=== PATIENT | male | born 1980 | race Caucasian/White ===

== ENCOUNTER → 2016-09-06 | Outpatient (CLI) | payer BC ==
--- NOTE | 2016-09-06 12:24 | PN ---
DATE OF SERVICE: 09/06/2016 A 35-year-old gentleman who came in [facility]up [facility] for treatment of moderate obstructive sleep apnea-hypopnea syndrome. We discussed results of diagnostic sleep study and titration with the patient. Home sleep apnea test showed obstructive sleep apnea with apnea-hypopnea index 25.1 with oxygen desaturation to 81%. Patient presently on treatment with a CPAP pressure 8 cm of water. Patient trying to use equipment every night for the whole night, but he had several episodes of upper respiratory infection and at that time he was not able to use equipment. I checked his CPAP unit. CPAP pressure of 8 cm of water. Patient used equipment 23 out of 30 nights but only 15 out of 30 nights for more than 4 hours. Leak is acceptable 7 L/min. Apnea-hypopnea index reading 3.5. Usage for 3 months is 54 out of 79 nights. REM is in ( ) regimen. Sometimes patient may feel some sleepiness in the afternoon at the time of watching TV or lying down to rest. MEDICATIONS: Metformin, Januvia, losartan, metoprolol hydrochlorothiazide. During physical exam, patient in no distress. BP 139/97, HR 88, RR 16. Weight 215, temp 98.1. Oxygen saturation at room air 94%. HEENT: PERRLA, EOMI. LUNGS: Clear. HEART: S1, S2, regular. ABDOMEN: Soft, nontender. EXTREMITIES: No edema. IMPRESSION: 1. Moderate by results of home sleep apnea test; obstructive sleep apnea-hypopnea syndrome. Apnea-hypopnea index 25.1 with oxygen desaturation to 81%, practically on control with CPAP at 8 cm of water. Patient benefiting from CPAP treatment. 2. Compliance of usage is slightly below recommended, but patient had several episodes of upper respiratory infection and was not able to use machine at that time. 3. Sometimes he feels a little sleepiness on afternoon time. 4. Hypertension. 5. Diabetes. 6. Status post surgical treatment of cleft palate in manufacturing technician. 7. Status post left ankle surgery for benign cyst. 8. History of ear infection with tube insertion in the past. PLAN: 1. I changed ramp time from automatic regimen to 20 minutes. 2. Patient will use CPAP treatment every night for the whole night with the same regimen of pressure. 3. We discussed with the patient how to adjust ramp time and humidifier regimen by himself. 4. Watching weight. 5. Sleep hygiene with regular time in bed for at least 8 hours. 6. 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 Thank you very much for allowing me to participate in the management of your patient. Sincerely, Kanu Magana MD, PhD, FAASM. Diplomat of [place] [employer], Sleep Medicine Board by [place] [employer] [place] [employer] Industrial Controls Technician [facility] [place]
== END | disposition home or self-care (01) ==

== ENCOUNTER → 2016-10-04 | Outpatient (CLI) | payer BC | END | disposition home or self-care (01) | LOC: SLEEP 10:05 | PROVIDERS: ATTEND Internal Medicine ==

== ENCOUNTER 2017-05-22 17:38 | Emergency (ER) | payer SELFPAY ==
[2017-05-22] MEDS ORDERED: FAMOTIDINE 20 MG/2 ML VIAL IV STA (17:48)
--- NOTE | 2017-05-22 18:00 | ED ---
Skin/Abscess/FB HPI - General Chief complaint: Skin/Abscess/Foreign Body Stated complaint: ALLERGIC REACTION Time Seen by Provider: 05/22/17 17:42 Source: patient, RN notes reviewed Mode of arrival: EMS Limitations: no limitations - History of Present Illness Initial comments: 36-year-old male presents emergency from the EMS chief complaint ALLERGIC reaction. Patient states he was stung by a bee in his left forearm region. Patient states a few minutes after he started feeling itchy all over and having some shortness of breath. Patient states he called 911 at that time and was given Solu-Medrol, Benadryl and epi by EMS. Patient states this point symptoms are improving thoroughly feels shaky. Patient denies any difficulty swallowing difficulty breathing. He states he has had ALLERGIC reactions in the past to bee stings. - Related Data Previous Rx's Medication Instructions Recorded diphenhydrAMINE [Benadryl] 50 mg PO QID PRN #20 capsule 05/22/17 predniSONE 50 mg PO DAILY #3 tab 05/22/17 Allergies Allergy/AdvReac Type Severity Reaction Status Date / Time bee venom protein (honey bee) Allergy Rash/Hives Verified 05/22/17 17:47 Review of Systems ROS Statement: Those systems with pertinent positive or pertinent negative responses have been documented in the HPI. ROS Other: All systems not noted in ROS Statement are negative. Past Medical History Past Medical History: Diabetes Mellitus, Hypertension History of Any Multi-Drug Resistant Organisms: None Reported Past Surgical History: Orthopedic Surgery Past Psychological History: No Psychological Hx Reported Smoking Status: Never smoker Past Alcohol Use History: None Reported Past Drug Use History: None Reported General Exam Limitations: no limitations General appearance: alert, in no apparent distress Head exam: Present: atraumatic, normocephalic, normal inspection Eye exam: Present: normal appearance, PERRL, EOMI. Absent: scleral icterus, conjunctival injection, periorbital swelling ENT exam: Present: normal exam, normal oropharynx, mucous membranes moist, TM's normal bilaterally, normal external ear exam Neck exam: Present: normal inspection, full ROM. Absent: tenderness, meningismus, lymphadenopathy Respiratory exam: Present: normal lung sounds bilaterally. Absent: respiratory distress, wheezes, rales, rhonchi, stridor Cardiovascular Exam: Present: regular rate, normal rhythm, normal heart sounds. Absent: systolic murmur, diastolic murmur, rubs, gallop, clicks Neurological exam: Present: alert, oriented X3, CN II-XII intact Skin exam: Present: warm, dry, intact, normal color. Absent: rash Course Vital Signs 05/22/17 05/22/17 05/22/17 17:41 18:05 18:27 Temperature 97.8 F Pulse Rate 114 H 108 H 106 H Respiratory 20 24 Rate Blood Pressure 155/74 141/68 O2 Sat by Pulse 96 92 L Oximetry 05/22/17 05/22/17 18:32 19:09 Temperature 97.9 F Pulse Rate 108 H 113 H Respiratory 18 Rate Blood Pressure 123/62 O2 Sat by Pulse 96 Oximetry Medical Decision Making - Medical Decision Making 36 year old male presented for ALLERGIC reaction. Patient was given epi, Solu- Medrol albuterol by EMS. There was a failed attempt for IM epi.Patient was given IV epi, EKG does not show any arrhythmias. Patient is symptom free. Patient will be discharged with prednisone and Benadryl. Disposition Clinical Impression: Allergic reaction, Bee sting Disposition: HOME SELF-CARE Condition: Stable Instructions: General Allergic Reaction (ED) Additional Instructions: Please return to the Emergency Department if symptoms worsen or any other concerns. Prescriptions: diphenhydrAMINE [Benadryl] 50 mg PO QID PRN #20 capsule PRN Reason: allergic symptoms predniSONE 50 mg PO DAILY #3 tab Referrals: Pavan Kyle MD [Primary Care Provider] - 1-2 days Time of Disposition: 19:29
[2017-05-22] MEDS ORDERED: IPRATROPIUM-ALBUTEROL 3 ML NEB INHALATION STA (18:20)
[2017-05-22 19:11] VITALS: RESP 18
[2017-05-22 19:44] VITALS: BP 120/58; PULSE 110; TEMP 98
== END 2017-05-22 19:50 | disposition home or self-care (01) ==
LOC: EC 17:38
DX: T63.441A Toxic effect of venom of bees, accidental (unintentional), initial encounter (principal); Z91.030 Bee allergy status
CPT/HCPCS: 93005; 94640; 96374; 99284

== ENCOUNTER 2021-10-12 12:20 | Emergency (ER) | payer OTHER ==
[2021-10-12 12:26] VITALS: BP 153/89; TEMP 97
--- NOTE | 2021-10-12 13:11 | CT ---
EXAMINATION TYPE: CT brain wo con DATE OF EXAM: 10/12/2021 COMPARISON: None available HISTORY: Fall on ice this am, hitting back of head CT DLP: 1099.4 mGycm Automated exposure control for dose reduction was used. TECHNIQUE: Multiplanar CT scan of the brain is performed without IV contrast administration. FINDINGS: Unremarkable morphology of the cerebral hemispheres, cerebellum and brainstem. No acute intracranial hemorrhage. No gross acute cortical infarct. No midline shift, herniation or ventriculectomy. Unremarkable williamson-white matter differentiation, basal cisterns, sella and CP angles. No gross space-o ccupying lesion, vasogenic edema or mass effect. Unremarkable orbits. Right high parietal posterior scalp swelling/hematoma. Left maxillary sinus poly p/retention cyst, not completely included in the scan. Opacified right mastoid air cells, suggestive of chronic mastoiditis. Unremarkable calvarial bones. IMPRESSION: No acute intracranial posttraumatic sequela or acute calvarial bone fracture. Incidental findings as described above.
--- NOTE | 2021-10-12 13:15 | ED ---
Fall HPI - General Chief Complaint: Fall Stated Complaint: [facility]-Fall Time Seen by Provider: 10/12/21 12:27 Source: patient, RN notes reviewed Mode of arrival: ambulatory Limitations: no limitations - History of Present Illness Initial Comments: This a 40-year-old male presents emergency Department with chief complaint muscle fall. Patient states she slipped on some ice outside of work. Patient states that he fell back striking his head he does have some mild discomfort. Denies any significant neck or back pain no focal weakness denies any extremity paresthesias no blurred vision denies any loss conscious. Patient states that he just has some pain, swelling of the scalp. - Related Data Previous Rx's Medication Instructions Recorded EPINEPHrine [Epipen 2-Ab] 0.3 mg IM ONCE PRN #1 pack 05/22/17 diphenhydrAMINE [Benadryl] 50 mg PO QID PRN #20 capsule 05/22/17 predniSONE 50 mg PO DAILY #3 tab 05/22/17 Allergies Allergy/AdvReac Type Severity Reaction Status Date / Time bee venom protein (honey bee) Allergy Rash/Hives Verified 10/12/21 12:26 lisinopril Allergy Cough Verified 10/12/21 12:26 metformin Allergy Nausea & Verified 10/12/21 12:26 Vomiting Review of Systems ROS Statement: Those systems with pertinent positive or pertinent negative responses have been documented in the HPI. ROS Other: All systems not noted in ROS Statement are negative. Past Medical History Past Medical History: Diabetes Mellitus, Hypertension History of Any Multi-Drug Resistant Organisms: None Reported Past Surgical History: Orthopedic Surgery Past Psychological History: No Psychological Hx Reported Past Alcohol Use History: None Reported Past Drug Use History: None Reported General Exam Limitations: no limitations General appearance: alert, in no apparent distress Head exam: Present: atraumatic, normocephalic. Absent: normal inspection (Posterior scalp hematoma) Eye exam: Present: normal appearance, PERRL, EOMI. Absent: scleral icterus, conjunctival injection, periorbital swelling ENT exam: Present: normal exam, normal oropharynx, mucous membranes moist, TM's normal bilaterally Neck exam: Present: normal inspection, full ROM. Absent: tenderness, meningismus, lymphadenopathy Respiratory exam: Present: normal lung sounds bilaterally. Absent: respiratory distress, wheezes, rales, rhonchi, stridor Cardiovascular Exam: Present: regular rate, normal rhythm, normal heart sounds. Absent: systolic murmur, diastolic murmur, rubs, gallop, clicks Neurological exam: Present: alert, oriented X3, CN II-XII intact, reflexes normal. Absent: motor sensory deficit Skin exam: Present: warm, dry, intact, normal color. Absent: rash Course Vital Signs 10/12/21 12:21 Temperature 97.0 F L Pulse Rate 97 Respiratory 18 Rate Blood Pressure 153/89 O2 Sat by Pulse 98 Oximetry Medical Decision Making - Medical Decision Making CT is unremarkable for acute findings. Patient is some chronic changes. Patient we discharged in stable condition return parameters were discussed. Disposition Clinical Impression: Fall, Scalp hematoma, Head contusion Disposition: HOME SELF-CARE Condition: Stable Instructions (If sedation given, give patient instructions): Head Injury (ED) Additional Instructions: Please return to the Emergency Department if symptoms worsen or any other concerns. Is patient prescribed a controlled substance at d/c from ED?: No Referrals: Juan Alberto Robertson DO [Primary Care Provider] - 1-2 days Time of Disposition: 13:15
[2021-10-12 13:24] VITALS: PULSE 78; RESP 16
== END 2021-10-12 13:24 | disposition home or self-care (01) ==
LOC: EC 12:20
DX: S00.03XA Contusion of scalp, initial encounter (principal); E11.9 Type 2 diabetes mellitus without complications; I10 Essential (primary) hypertension; Z79.84 Long term (current) use of oral hypoglycemic drugs; W00.0XXA Fall on same level due to ice and snow, initial encounter
CPT/HCPCS: 70450; 99284

== ENCOUNTER → 2023-07-30 | Outpatient (CLI) | payer BC | END | disposition home or self-care (01) | LOC: LABWHC1 14:31 | PROVIDERS: ATTEND Family Medicine | DX: E11.65 Type 2 diabetes mellitus with hyperglycemia (principal); I10 Essential (primary) hypertension; R70.0 Elevated erythrocyte sedimentation rate | CPT/HCPCS: 36415; 83036 ==

== ENCOUNTER 2023-12-16 07:21 | Emergency (ER) | payer BC ==
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
[2023-12-16 07:45] VITALS: RESP 20; TEMP 98.8
[2023-12-16] MEDS: methylPREDNISolone SOD SUCCI 125 MG/2 ML VIAL IV STA (07:53)
[2023-12-16 07:57] LABS: Basophils # (A) 0.1 k/uL (0-0.2); Basophils % (A) 1 %; Eosinophils # (A) 0.2 k/uL (0-0.7); Eosinophils % (A) 3 %; HCT 36.6 % (39.0-53.0); HGB 12.6 gm/dL (13.0-17.5); Lymphocytes # (A) 1.8 k/uL (1.0-4.8); Lymphocytes % (A) 24 %; MCH 28.9 pg (25.0-35.0); MCHC 34.4 g/dL (31.0-37.0); Mean Platelet Volume 8.4; Monocytes # (A) 0.5 k/uL (0-1.0); Monocytes % (A) 7 %; Neutrophils # (A) 4.7 k/uL (1.3-7.7); Neutrophils % (A) 63 %; Platelet Count 168 k/uL (150-450); RBC 4.36 m/uL (4.30-5.90); RDW 13.3 % (11.5-15.5); WBC 7.5 k/uL (3.8-10.6)
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
[2023-12-16 08:12] LABS: ALT 29 U/L (4-49); AST 33 U/L (17-59); African American GFR (CKD) >90 (>60 ml/min/1.73 sqM); Albumin 3.4 g/dL (3.5-5.0); Alkaline Phosphatase 72 U/L (38-126); Anion Gap 9 mmol/L; Blood Urea Nitrogen 11 mg/dL (9-20); Calcium 8.7 mg/dL (8.4-10.2); Carbon Dioxide 24 mmol/L (22-30); Chloride 103 mmol/L (98-107); Glucose 193 mg/dL (74-99); Non-African American GFR(CKD) >90 (>60 ml/min/1.73 sqM); Potassium 3.9 mmol/L (3.5-5.1); Sodium 136 mmol/L (137-145); Total Bilirubin 1.4 mg/dL (0.2-1.3); Total Protein 6.3 g/dL (6.3-8.2)
[2023-12-16] MEDS: IPRATROPIUM-ALBUTEROL 3 ML NEB INHALATION STA (09:08)
[2023-12-16] MEDS: cefTRIAXone IN SWFI 1,000 MG/10 ML SYRINGE IVP STA (09:37)
[2023-12-16 10:02] VITALS: PULSE 98
[2023-12-16 10:03] VITALS: BP 165/89
== END 2023-12-16 09:53 | disposition home or self-care (01) ==
LOC: EC 07:21
DX: J18.9 Pneumonia, unspecified organism (principal); Z91.030 Bee allergy status; Z88.8 Allergy status to other drugs, medicaments and biological substances
CPT/HCPCS: 36415; 94640; 85379; 80053; 85025; 87636; 71046; 99285; 96374; 96375; J0696; J2919

== ENCOUNTER 2023-12-18 14:19 | Observation (INO) | payer BC ==
--- NOTE | 2023-12-18 14:56 | XR ---
EXAMINATION TYPE: XR chest 2V DATE OF EXAM: 12/18/2023 COMPARISON: 12/16/2023 INDICATION: Short of breath TECHNIQUE: Single frontal view of the chest is obtained. FINDINGS: The heart size is normal. The pulmonary vasculature is normal. The lungs are clear. IMPRESSION: 1. No acute pulmonary process.
--- NOTE | 2023-12-18 15:22 | ED ---
SOB HPI - General Source: patient, RN notes reviewed Mode of arrival: ambulatory Limitations: no limitations <Ashley Smith - Last Filed: 12/18/23 15:20> <Neal Lynch - Last Filed: 12/18/23 17:25> - General Chief Complaint: Shortness of Breath Stated Complaint: SOB, low oxygen Time Seen by Provider: 12/18/23 14:30 - History of Present Illness Initial Comments: Evelina joshi is a 43-year-old male with a history of asthma presents emergency department chief complaint of a cough and shortness of breath over the last 5 days. He states that he was advised by his primary care provider to report to the emergency department due to having a low oxygen saturation office reading 86 to 87%. (Ashley Smith) 43-year-old male presents for evaluation of cough and dyspnea. Patient has history of hypertension and diabetes. Patient has had symptoms for the past 5 days after being exposed to smoke. Patient denies fever. He was treated with antibiotics and albuterol but continues to have nonproductive cough and mild dyspnea. No vomiting. (Neal Lynch) - Related Data Previous Rx's Medication Instructions Recorded EPINEPHrine [Epipen 2-Ab] 0.3 mg IM ONCE PRN #1 pack 05/22/17 diphenhydrAMINE [Benadryl] 50 mg PO QID PRN #20 capsule 05/22/17 predniSONE 50 mg PO DAILY #3 tab 05/22/17 Albuterol Inhaler [Ventolin Hfa 1 - 2 puff INHALATION Q6H PRN #1 12/16/23 Inhaler] each Azithromycin [Zithromax Z Pack] 0 tab PO DIRECTED #6 tab 12/16/23 Allergies Allergy/AdvReac Type Severity Reaction Status Date / Time bee venom protein (honey bee) Allergy Rash/Hives Verified 12/18/23 14:29 lisinopril Allergy Cough Verified 12/18/23 14:29 metformin Allergy Nausea & Verified 12/18/23 14:29 Vomiting metoprolol [From Lopressor] Allergy Rash/Hives Verified 12/18/23 14:29 Review of Systems ROS Other: All systems not noted in ROS Statement are negative. <Ashley Smith - Last Filed: 12/18/23 15:20> ROS Other: All systems not noted in ROS Statement are negative. <Neal Lynch - Last Filed: 12/18/23 17:25> ROS Statement: Those systems with pertinent positive or pertinent negative responses have been documented in the HPI. Past Medical History Past Medical History: Diabetes Mellitus, Hypertension History of Any Multi-Drug Resistant Organisms: None Reported Past Surgical History: Orthopedic Surgery Past Psychological History: No Psychological Hx Reported Smoking Status: Never smoker Past Alcohol Use History: None Reported Past Drug Use History: None Reported <Ashley Smith - Last Filed: 12/18/23 15:20> General Exam Limitations: no limitations <Ashley Smith - Last Filed: 12/18/23 15:20> General appearance: alert, in no apparent distress Head exam: Present: atraumatic, normocephalic Eye exam: Present: normal appearance, PERRL ENT exam: Present: normal exam Neck exam: Present: normal inspection. Absent: tenderness, meningismus Respiratory exam: Present: wheezes (Bronchospastic cough). Absent: respiratory distress Cardiovascular Exam: Present: normal rhythm, tachycardia GI/Abdominal exam: Present: soft. Absent: distended, tenderness Extremities exam: Present: normal inspection, normal capillary refill. Absent: pedal edema, calf tenderness Neurological exam: Present: alert, oriented X3, CN II-XII intact. Absent: motor sensory deficit Psychiatric exam: Present: normal affect, normal mood Skin exam: Present: warm, dry, intact, normal color <Neal Lynch - Last Filed: 12/18/23 17:25> - General Exam Comments Initial Comments: Visual Physical Exam Vital signs reviewed General: Well-appearing, nontoxic, no acute distress. Head: Normocephalic, atraumatic Eyes: PERRLA, EOMI ENT: Airway patent Chest: Nonlabored breathing Skin: No visual rash, normal skin tone Neuro: Alert and oriented 3 Musculoskeletal: No gross abnormalities (Ashley Smith) Course Vital Signs 12/18/23 12/18/23 12/18/23 14:26 15:46 16:10 Temperature 98.5 F Pulse Rate 115 H 95 105 H Respiratory 18 Rate Blood Pressure 126/100 O2 Sat by Pulse 92 L Oximetry Medical Decision Making <Ashley Smith - Last Filed: 12/18/23 15:20> - Lab Data Result diagrams: 12/18/23 15:48 12/18/23 15:48 <Neal Lynch N - Last Filed: 12/18/23 17:25> - Medical Decision Making I completed the quick note portion of this chart signed Ashley Smith PA-C (Ashley Smith) Was pt. sent in by a medical professional or institution ([facility], [employer] [facility], urgent care, hospital, or senior living...) When possible be specific @ -No Did you speak to anyone other than the patient for history (EMS, parent, family, police, friend...)? What history was obtained from this source @ -No Did you review nursing and triage notes (agree or disagree)? Why? @ -I reviewed and agree with nursing and triage notes Were old charts reviewed (outside hosp., previous admission, EMS record, old EKG, old radiological studies, urgent care reports/EKG's, senior living records)? Report findings @ -No old charts were reviewed Differential Diagnosis (chest pain, altered mental status, abdominal pain women, abdominal pain men, vaginal bleeding, weakness, fever, dyspnea, syncope, headache, dizziness, GI bleed, back pain, seizure, CVA, palpatations, mental he alth, musculoskeletal)? @Differential Dyspnea: Coronary syndrome, arrhythmia, tamponade, asthma, COPD, pulmonary embolism, pneumonia, pneumothorax, pulmonary effusion, anaphylaxis, diabetic ketoacidosis, flailed chest, pulmonary contusion, diaphragmatic rupture, anemia, neuromuscular, this is not meant to be an all-inclusive list. EKG interpreted by me (3pts min.). @Sinus tachycardia rate of 116, WA interval 123, QRS duration 95, QTc [address] segment elevation X-rays interpreted by me (1pt min.). @ -Chest x-ray negative for acute cardiopulmonary disease. CT interpreted by me (1pt min.). @ -None done U/S interpreted by me (1pt. min.). @ -None done What testing was considered but not performed or refused? (CT, X-rays, U/S, labs)? Why? @ -None What meds were considered but not given or refused? Why? @ -None Did you discuss the management of the patient with other professionals (pro fessionals i.e. [facility], [employer], lab, RT, psych nurse, director social service, main line assembler, teacher, fire officer, case monitor)? Give summary @EM Was smoking cessation discussed for >3mins.? @ -No Was critical care preformed (if so, how long)? @ -No Were there social determinants of health that impacted care today? How? (Homelessness, low income, unemployed, alcoholism, drug addiction, transportation, low edu. Level, literacy, decrease access to med. care, fdc, rehab)? @ -No Was there de-escalation of care discussed even if they declined (Discuss DNR or withdrawal of care, Hospice)? DNR status @ -No What co-morbidities impacted this encounter? (DM, HTN, Smoking, COPD, CAD, Cancer, CVA, ARF, Chemo, Hep., AIDS, mental health diagnosis, sleep apnea, morbid obesity)? @ -Hypertension, diabetes Was patient admitted / discharged? Hospital course, mention meds given and route, prescriptions, significant lab abnormalities, going to OR and other pertinent info. @ -[43-year-old male with persistent cough, dyspnea, hypoxia. Patient sent in by primary care for hypoxia in the 80s. Patient has been sick for 5 days with cough this occurred after exposure to smoke. He does have wheezing and decreased air entry bilaterally. Chest x-ray is clear. He has normal CBC, normal CMP, negative D-dimer, negative troponin and BNP. He will be placed in observation for treatment of reactive airway disease with hypoxia. Undiagnosed new problem with uncertain prognosis? @ -No Drug Therapy requiring intensive monitoring for toxicity (Heparin, Nitro, Insulin, Cardizem)? @ -No Were any procedures done? @ -No Diagnosis/symptom? @ -Asthma exacerbation, reactive airway, hypoxia Acute, or Chronic, or Acute on Chronic? @ -Acute Uncomplicated (without systemic symptoms) or Complicated (systemic symptoms)? @ -Default Side effects of treatment? @ -No Exacerbation, Progression, or Severe Exacerbation? @ -No Poses a threat to life or bodily function? How? (Chest pain, [place], [place], pneumonia, PE, COPD, DKA, ARF, appy, cholecystitis, CVA, Diverticulitis, Homicidal, Suicidal, threat to staff... and all critical care pts) @ -Low risk at this time (Neal Lynch) - Lab Data Lab Results 12/18/23 12/18/23 12/18/23 Range/Units 15:48 15:48 15:48 WBC 11.6 H (3.8-10.6) k/uL RBC 4.27 L (4.30-5.90) m/uL Hgb 12.2 L (13.0-17.5) gm/dL Hct 36.1 L (39.0-53.0) % MCV 84.5 (80.0-100.0) fL MCH 28.6 (25.0-35.0) pg MCHC 33.9 (31.0-37.0) g/dL RDW 13.6 (11.5-15.5) % Plt Count 238 (150-450) k/uL MPV 8.2 Neutrophils % 71 % Lymphocytes % 21 % Monocytes % 4 % Eosinophils % 1 % Basophils % 1 % Neutrophils # 8.2 H (1.3-7.7) k/uL Lymphocytes # 2.5 (1.0-4.8) k/uL Monocytes # 0.4 (0-1.0) k/uL Eosinophils # 0.2 (0-0.7) k/uL Basophils # 0.1 (0-0.2) k/uL PT 9.7 L (10.0-12.5) sec INR 0.9 (<1.2) APTT 23.9 (22.0-30.0) sec D-Dimer 0.53 (<0.60) mg/L FEU Sodium 138 (137-145) mmol/L Potassium 3.9 (3.5-5.1) mmol/L Chloride 106 (98-107) mmol/L Carbon Dioxide 25 (22-30) mmol/L Anion Gap 7 mmol/L BUN 20 (9-20) mg/dL Creatinine 0.97 (0.66-1.25) mg/dL Est GFR (CKD-EPI)AfAm >90 (>60 ml/min/1.73 sqM) Est GFR (CKD-EPI)NonAf >90 (>60 ml/min/1.73 sqM) Glucose 130 H (74-99) mg/dL Plasma Lactic Acid Ayo (0.7-2.0) mmol/L Calcium 8.8 (8.4-10.2) mg/dL Magnesium 2.0 (1.6-2.3) mg/dL Total Bilirubin 0.7 (0.2-1.3) mg/dL AST 31 (17-59) U/L ALT 37 (4-49) U/L Alkaline Phosphatase 70 (38-126) U/L Troponin I (0.000-0.034) ng/mL NT-Pro-B Natriuret Pep 142 pg/mL Total Protein 6.1 L (6.3-8.2) g/dL Albumin 3.4 L (3.5-5.0) g/dL Influenza Type A (PCR) (Not Detectd) Influenza Type B (PCR) (Not Detectd) RSV (PCR) (Not Detectd) SARS-CoV-2 (PCR) (Not Detectd) 12/18/23 12/18/23 12/18/23 Range/Units 15:48 15:48 15:55 WBC (3.8-10.6) k/uL RBC (4.30-5.90) m/uL Hgb (13.0-17.5) gm/dL Hct (39.0-53.0) % MCV (80.0-100.0) fL MCH (25.0-35.0) pg MCHC (31.0-37.0) g/dL RDW (11.5-15.5) % Plt Count (150-450) k/uL MPV Neutrophils % % Lymphocytes % % Monocytes % % Eosinophils % % Basophils % % Neutrophils # (1.3-7.7) k/uL Lymphocytes # (1.0-4.8) k/uL Monocytes # (0-1.0) k/uL Eosinophils # (0-0.7) k/uL Basophils # (0-0.2) k/uL PT (10.0-12.5) sec INR (<1.2) APTT (22.0-30.0) sec D-Dimer (<0.60) mg/L FEU Sodium (137-145) mmol/L Potassium (3.5-5.1) mmol/L Chloride (98-107) mmol/L Carbon Dioxide (22-30) mmol/L Anion Gap mmol/L BUN (9-20) mg/dL Creatinine (0.66-1.25) mg/dL Est GFR (CKD-EPI)AfAm (>60 ml/min/1.73 sqM) Est GFR (CKD-EPI)NonAf (>60 ml/min/1.73 sqM) Glucose (74-99) mg/dL Plasma Lactic Acid Ayo 0.9 (0.7-2.0) mmol/L Calcium (8.4-10.2) mg/dL Magnesium (1.6-2.3) mg/dL Total Bilirubin (0.2-1.3) mg/dL AST (17-59) U/L ALT (4-49) U/L Alkaline Phosphatase (38-126) U/L Troponin I <0.012 (0.000-0.034) ng/mL NT-Pro-B Natriuret Pep pg/mL Total Protein (6.3-8.2) g/dL Albumin (3.5-5.0) g/dL Influenza Type A (PCR) Not Detected (Not Detectd) Influenza Type B (PCR) Not Detected (Not Detectd) RSV (PCR) Not Detected (Not Detectd) SARS-CoV-2 (PCR) Not Detected (Not Detectd) Disposition <Ashley Smith - Last Filed: 12/18/23 15:20> Is patient prescribed a controlled substance at d/c from ED?: No Time of Disposition: 17:25 <Neal Lynch - Last Filed: 12/18/23 17:25> Clinical Impression: Hypoxia, Reactive airway disease Disposition: ADMITTED IP TO THIS HOSP Condition: Stable Referrals: Juan Alberto Robertson DO [Primary Care Provider] - 1-2 days
[2023-12-18] MEDS: ALBUTEROL NEBULIZED 2.5 MG/3 ML INHALATION STA (15:41)
[2023-12-18] MEDS: IPRATROPIUM 0.5 MG/2.5 ML NEBU INHALATION STA (15:41)
[2023-12-18 16:12] LABS: Basophils # (A) 0.1 k/uL (0-0.2); Basophils % (A) 1 %; Eosinophils # (A) 0.2 k/uL (0-0.7); Eosinophils % (A) 1 %; HCT 36.1 % (39.0-53.0); HGB 12.2 gm/dL (13.0-17.5); Lymphocytes # (A) 2.5 k/uL (1.0-4.8); Lymphocytes % (A) 21 %; MCH 28.6 pg (25.0-35.0); MCHC 33.9 g/dL (31.0-37.0); MCV 84.5 fL (80.0-100.0); Mean Platelet Volume 8.2; Monocytes # (A) 0.4 k/uL (0-1.0); Monocytes % (A) 4 %; Neutrophils # (A) 8.2 k/uL (1.3-7.7); Neutrophils % (A) 71 %; Platelet Count 238 k/uL (150-450); RBC 4.27 m/uL (4.30-5.90); RDW 13.6 % (11.5-15.5); WBC 11.6 k/uL (3.8-10.6)
[2023-12-18 16:25] LABS: INR 0.9 (<1.2); Partial Thromboplastin Time 23.9 sec (22.0-30.0); Prothrombin Time 9.7 sec (10.0-12.5)
[2023-12-18 16:32] LABS: ALT 37 U/L (4-49); AST 31 U/L (17-59); African American GFR (CKD) >90 (>60 ml/min/1.73 sqM); Albumin 3.4 g/dL (3.5-5.0); Alkaline Phosphatase 70 U/L (38-126); Anion Gap 7 mmol/L; Blood Urea Nitrogen 20 mg/dL (9-20); Calcium 8.8 mg/dL (8.4-10.2); Carbon Dioxide 25 mmol/L (22-30); Chloride 106 mmol/L (98-107); Glucose 130 mg/dL (74-99); Non-African American GFR(CKD) >90 (>60 ml/min/1.73 sqM); Potassium 3.9 mmol/L (3.5-5.1); Sodium 138 mmol/L (137-145); Total Bilirubin 0.7 mg/dL (0.2-1.3); Total Protein 6.1 g/dL (6.3-8.2)
[2023-12-18 16:40] LABS: NT-Pro-B-Type Natriuretic Pept 142 pg/mL
[2023-12-18] MEDS ORDERED: ACETAMINOPHEN TAB 325 MG TAB PO PRN (17:21)
[2023-12-18] MEDS ORDERED: NALOXONE 0.4 MG/ML 1 ML VIAL IVP PRN (17:21)
[2023-12-18] MEDS: AZITHROMYCIN 500 MG TAB PO SCH (17:36)
[2023-12-18] MEDS: methylPREDNISolone SOD SUCCI 125 MG/2 ML VIAL IV SCH (17:36)
[2023-12-18] MEDS: IPRATROPIUM-ALBUTEROL 3 ML NEB INHALATION SCH (20:48)
[2023-12-18 22:30] LABS: Glucose,Whole Blood 381 mg/dL (70-110)
[2023-12-18] MEDS ORDERED: MONTELUKAST 10 MG TAB PO PRN (22:33)
[2023-12-18] MEDS: INSULIN DETEMIR (LEVEMIR) 100 UNIT/ML SYR SQ ONE (23:17)
[2023-12-18] MEDS: DAPAGLIFLOZIN PROPANEDIOL 10 MG TABLET PO SCH (23:18)
[2023-12-18] MEDS: ACARBOSE 25 MG TAB PO SCH (23:18)
[2023-12-18] MEDS: INSULIN ASPART (NovoLOG) 100 UNIT/ML VIAL SQ SCH (23:19)
[2023-12-19 03:10] LABS: Glucose,Whole Blood 334 mg/dL (70-110)
[2023-12-19 05:02] VITALS: TEMP 97.8
[2023-12-19 06:29] LABS: Glucose,Whole Blood 232 mg/dL (70-110)
[2023-12-19 08:37] VITALS: BP 154/99; RESP 18
[2023-12-19] MEDS: ATORVASTATIN 10 MG TAB PO SCH (08:41)
[2023-12-19] MEDS: LOSARTAN 50 MG TAB PO SCH (08:41)
[2023-12-19] MEDS: GLIMEPIRIDE 4 MG TAB PO SCH (08:41)
[2023-12-19] MEDS: LINAGLIPTIN 5 MG TABLET PO SCH (08:41)
[2023-12-19 11:38] VITALS: PULSE 102
[2023-12-19 11:38] LABS: Glucose,Whole Blood 242 mg/dL (70-110)
--- NOTE | 2023-12-19 12:00 | P.HPIM ---
History of Present Illness Patient is a 43-year-old male with known history of seasonal allergies and asthma came in with complaints of shortness of breath found to be hypoxic at 86- 87% on room air. Patient presently on room air saturating well at 97% patient r eceived systemic steroids and nasal treatments with significant improvement in his shortness of breath chest x-ray did not show any pneumonia. Patient is diabetic and is on multiple p.o. medications for diabetes mellitus the patient blood sugars are high because of the systemic steroids. Patient is obese neck was never tested for sleep apnea. Patient denies any sputum production does have cough. REVIEW OF SYSTEMS: CONSTITUTIONAL: No fever, no malaise, no fatigue. HEENT: No recent visual problems or hearing problems. Denied any sore throat. CARDIOVASCULAR: No chest pain, orthopnea, PND, no palpitations, no syncope. PULMONARY: no hemoptysis. GASTROINTESTINAL: No diarrhea, no nausea, no vomiting, no abdominal pain. NEUROLOGICAL: No headaches, no weakness, no numbness. HEMATOLOGICAL: Denies any bleeding or petechiae. GENITOURINARY: Denies any burning micturition, frequency, or urgency. MUSCULOSKELETAL/RHEUMATOLOGICAL: Denies any joint pain, swelling, or any muscle pain. ENDOCRINE: Denies any polyuria or polydipsia. The rest of the 14-point review of systems is negative. PHYSICAL EXAMINATION: GENERAL: The patient is alert and oriented x3, not in any acute distress. Truncal obesity HEENT: Pupils are round and equally reacting to light. EOMI. No scleral icterus. No conjunctival pallor. Normocephalic, atraumatic. No pharyngeal erythema. No thyromegaly. CARDIOVASCULAR: S1 and S2 present. No murmurs, rubs, or gallops. PULMONARY: Chest is clear to auscultation, no wheezing or crackles. ABDOMEN: Soft, nontender, nondistended, normoactive bowel sounds. No palpable organomegaly. MUSCULOSKELETAL: No joint swelling or deformity. EXTREMITIES: No cyanosis, clubbing, or pedal edema. NEUROLOGICAL: Gross neurological examination did not reveal any focal deficits. SKIN: No rashes. Assessment and plan -Acute asthma exacerbation patient appears to have mild intermittent asthma. Patient will be started on a short steroid taper along with inpatient steroid a nd albuterol and will be discharged today saturating well patient is not hypoxic today. -Type 2 diabetes mellitus uncontrolled elevated blood sugars patient is obese patient does have metabolic syndrome, with hypertension and diabetes mellitus. Patient will benefit from use of semaglutide or other GLP inhibitors Leukocytosis secondary to asthma exacerbation no evidence of pneumonia will not require any antibiotics -Hypertension can be resumed on home diuretics Patient will be discharged today Past Medical History Past Medical History: Diabetes Mellitus, Hypertension History of Any Multi-Drug Resistant Organisms: None Reported Past Surgical History: Orthopedic Surgery Additional Past Surgical History / Comment(s): L ankle cyst removal, tube placed in ears, Past Anesthesia/Blood Transfusion Reactions: No Reported Reaction Past Psychological History: No Psychological Hx Reported Smoking Status: Never smoker Past Alcohol Use History: None Reported Past Drug Use History: None Reported Medications and Allergies Home Medications Medication Instructions Recorded Confirmed Type EPINEPHrine [Epipen 2-Ab] 0.3 mg IM ONCE PRN #1 pack 05/22/17 12/18/23 Rx Acarbose [Precose] 50 mg PO BID 12/18/23 12/18/23 History Albuterol Inhaler [Ventolin Hfa 1 - 2 puff INHALATION RT-Q6H PRN 12/18/23 12/18/23 History Inhaler] Atorvastatin [Lipitor] 10 mg PO DAILY 12/18/23 12/18/23 History Azithromycin [Zithromax Z Pack] See Taper PO DAILY 12/18/23 12/18/23 History Dapagliflozin Propanediol [Farxiga] 10 mg PO HS 12/18/23 12/18/23 History Dulaglutide [Trulicity] 4.5 mg SQ TU 12/18/23 12/18/23 History Ergocalciferol [Vitamin D2 (1250 1,250 mcg PO DIRECTED 12/18/23 12/18/23 History Mcg = 45463 Iu)] Glimepiride [Amaryl] 4 mg PO DAILY 12/18/23 12/18/23 History Losartan Potassium 100 mg PO DAILY 12/18/23 12/18/23 History Montelukast [Singulair] 10 mg PO HS PRN 12/18/23 12/18/23 History Sildenafil [Revatio] 20 mg PO TID PRN 12/18/23 12/18/23 History Triamterene-Hctz 37.5-25Mg 1 tab PO DAILY 12/18/23 12/18/23 History [Maxzide 37.5-25] sitaGLIPtin [Januvia] 100 mg PO DAILY 12/18/23 12/18/23 History Albuterol Inhaler [Ventolin Hfa 1 - 2 puff INHALATION Q6HR PRN #1 12/19/23 Rx Inhaler] each Famotidine [Pepcid] 20 mg PO BID #30 tablet 12/19/23 Rx INSULIN LISPRO (humaLOG) [humaLOG] 1 injection SQ DIRECTED #10 ml 12/19/23 Rx Mometasone/Formoterol [Dulera 100 1 puff INHALATION BID #13 gm 12/19/23 Rx Mcg-5 Mcg Inhaler] methylPREDNISolone Dose Pack 4 mg PO DIRECTED #21 tab 12/19/23 Rx [Medrol Dose Pack] Allergies Allergy/AdvReac Type Severity Reaction Status Date / Time bee venom protein (honey bee) Allergy Rash/Hives Verified 12/18/23 17:29 metoprolol [From Lopressor] Allergy Rash/Hives Verified 12/18/23 17:29 & edema lisinopril AdvReac Cough Verified 12/18/23 17:29 metformin AdvReac Nausea & Verified 12/18/23 17:29 Vomiting & Diarrhea Physical Exam Vitals: Vital Signs Temp Pulse Pulse Resp BP BP Pulse Ox 12/19/23 11:36 102 H 18 12/19/23 11:27 100 18 12/19/23 10:22 18 12/19/23 08:23 97 12/19/23 08:13 94 12/19/23 07:07 97.8 F 96 18 154/99 93 L 12/19/23 03:01 97.8 F 96 16 121/79 91 L 12/18/23 22:49 98.2 F 103 H 18 151/89 93 L 12/18/23 21:56 98 18 163/95 91 L 12/18/23 20:55 105 H 12/18/23 20:48 100 12/18/23 20:05 104 H 18 166/82 91 L 12/18/23 16:10 105 H 12/18/23 15:46 95 12/18/23 14:26 98.5 F 115 H 18 126/100 92 L Intake and Output 12/18/23 12/19/23 12/19/23 22:59 06:59 14:59 Other: Voiding Method Toilet Toilet # Voids 1 2 Weight 113.398 kg Results CBC & Chem 7: 12/18/23 15:48 12/18/23 15:48 Labs: Abnormal Lab Results - Last 24 Hours (Table) 12/18/23 12/18/23 12/18/23 Range/Units 15:48 15:48 15:48 WBC 11.6 H (3.8-10.6) k/uL RBC 4.27 L (4.30-5.90) m/uL Hgb 12.2 L (13.0-17.5) gm/dL Hct 36.1 L (39.0-53.0) % Neutrophils # 8.2 H (1.3-7.7) k/uL PT 9.7 L (10.0-12.5) sec Glucose 130 H (74-99) mg/dL POC Glucose (mg/dL) (70-110) mg/dL Total Protein 6.1 L (6.3-8.2) g/dL Albumin 3.4 L (3.5-5.0) g/dL 12/18/23 12/19/23 12/19/23 Range/Units 22:28 03:07 06:28 WBC (3.8-10.6) k/uL RBC (4.30-5.90) m/uL Hgb (13.0-17.5) gm/dL Hct (39.0-53.0) % Neutrophils # (1.3-7.7) k/uL PT (10.0-12.5) sec Glucose (74-99) mg/dL POC Glucose (mg/dL) 381 H 334 H 232 H (70-110) mg/dL Total Protein (6.3-8.2) g/dL Albumin (3.5-5.0) g/dL 12/19/23 Range/Units 11:37 WBC (3.8-10.6) k/uL RBC (4.30-5.90) m/uL Hgb (13.0-17.5) gm/dL Hct (39.0-53.0) % Neutrophils # (1.3-7.7) k/uL PT (10.0-12.5) sec Glucose (74-99) mg/dL POC Glucose (mg/dL) 242 H (70-110) mg/dL Total Protein (6.3-8.2) g/dL Albumin (3.5-5.0) g/dL Thrombosis Risk Factor Assmnt - Choose All That Apply Each Factor Represents 1 point: Age 41-60 years, Obesity (BMI >25) Thrombosis Risk Factor Assessment Total Risk Factor Score: 2 Thrombosis Risk Factor Assessment Level: Low Risk
--- NOTE | 2023-12-19 12:01 | P.DS ---
Providers Date of admission: 12/18/23 17:22 Attending physician: Bev Archibald Primary care physician: Juan Alberto Robertson DO Hospital Course: Patient is a 43-year-old male with known history of seasonal allergies and asthma came in with complaints of shortness of breath found to be hypoxic at 86- 87% on room air. Patient presently on room air saturating well at 97% patient received systemic steroids and nasal treatments with significant improvement in his shortness of breath chest x-ray did not show any pneumonia. Patient is diabetic and is on multiple p.o. medications for diabetes mellitus the patient blood sugars are high because of the systemic steroids. Patient is obese neck was never tested for sleep apnea. Patient denies any sputum production does have cough. PHYSICAL EXAMINATION: GENERAL: The patient is alert and oriented x3, not in any acute distress. Truncal obesity HEENT: Pupils are round and equally reacting to light. EOMI. No scleral icterus. No conjunctival pallor. Normocephalic, atraumatic. No pharyngeal erythema. No thyromegaly. CARDIOVASCULAR: S1 and S2 present. No murmurs, rubs, or gallops. PULMONARY: Chest is clear to auscultation, no wheezing or crackles. ABDOMEN: Soft, nontender, nondistended, normoactive bowel sounds. No palpable organomegaly. MUSCULOSKELETAL: No joint swelling or deformity. EXTREMITIES: No cyanosis, clubbing, or pedal edema. NEUROLOGICAL: Gross neurological examination did not reveal any focal deficits. SKIN: No rashes. Assessment and plan -Acute asthma exacerbation patient appears to have mild intermittent asthma. Patient will be started on a short steroid taper along with inpatient steroid and albuterol and will be discharged today saturating well patient is not hypoxic today. -Type 2 diabetes mellitus uncontrolled elevated blood sugars patient is obese patient does have metabolic syndrome, with hypertension and diabetes mellitus. Patient will benefit from use of semaglutide or other GLP inhibitors Leukocytosis secondary to asthma exacerbation no evidence of pneumonia will not require any antibiotics -Hypertension can be resumed on home diuretics Patient will be discharged today Patient Condition at Discharge: Stable Plan - Discharge Summary Discharge Rx Participant: Yes New Discharge Prescriptions: New Mometasone/Formoterol [Dulera 100 Mcg-5 Mcg Inhaler] 1 puff INHALATION BID #13 gm Albuterol Inhaler [Ventolin Hfa Inhaler] 1 - 2 puff INHALATION Q6HR PRN #1 each PRN Reason: Shortness Of Breath Or Wheezing INSULIN LISPRO (humaLOG) [humaLOG] 1 injection SQ DIRECTED #10 ml methylPREDNISolone Dose Pack [Medrol Dose Pack] 4 mg PO DIRECTED #21 tab Famotidine [Pepcid] 20 mg PO BID #30 tablet No Action EPINEPHrine [Epipen 2-Ab] 0.3 mg IM ONCE PRN #1 pack PRN Reason: Anaphylaxis Acarbose [Precose] 50 mg PO BID Glimepiride [Amaryl] 4 mg PO DAILY sitaGLIPtin [Januvia] 100 mg PO DAILY Dulaglutide [Trulicity] 4.5 mg SQ TU Losartan Potassium 100 mg PO DAILY Triamterene-Hctz 37.5-25Mg [Maxzide 37.5-25] 1 tab PO DAILY Ergocalciferol [Vitamin D2 (1250 Mcg = 55406 Iu)] 1,250 mcg PO DIRECTED Sildenafil [Revatio] 20 mg PO TID PRN PRN Reason: E.D. Dapagliflozin Propanediol [Farxiga] 10 mg PO HS Montelukast [Singulair] 10 mg PO HS PRN PRN Reason: Allergy Symptoms Atorvastatin [Lipitor] 10 mg PO DAILY Albuterol Inhaler [Ventolin Hfa Inhaler] 1 - 2 puff INHALATION RT-Q6H PRN PRN Reason: Shortness Of Breath Azithromycin [Zithromax Z Pack] See Taper PO DAILY Discharge Medication List EPINEPHrine [Epipen 2-Ab] 0.3 mg IM ONCE PRN #1 pack 05/22/17 [Rx] Acarbose [Precose] 50 mg PO BID 12/18/23 [History] Albuterol Inhaler [Ventolin Hfa Inhaler] 1 - 2 puff INHALATION RT-Q6H PRN 12/18/23 [History] Atorvastatin [Lipitor] 10 mg PO DAILY 12/18/23 [History] Azithromycin [Zithromax Z Pack] See Taper PO DAILY 12/18/23 [History] Dapagliflozin Propanediol [Farxiga] 10 mg PO HS 12/18/23 [History] Dulaglutide [Trulicity] 4.5 mg SQ TU 12/18/23 [History] Ergocalciferol [Vitamin D2 (1250 Mcg = 04489 Iu)] 1,250 mcg PO DIRECTED 12/18/23 [History] Glimepiride [Amaryl] 4 mg PO DAILY 12/18/23 [History] Losartan Potassium 100 mg PO DAILY 12/18/23 [History] Montelukast [Singulair] 10 mg PO HS PRN 12/18/23 [History] Sildenafil [Revatio] 20 mg PO TID PRN 12/18/23 [History] Triamterene-Hctz 37.5-25Mg [Maxzide 37.5-25] 1 tab PO DAILY 12/18/23 [History] sitaGLIPtin [Januvia] 100 mg PO DAILY 12/18/23 [History] Albuterol Inhaler [Ventolin Hfa Inhaler] 1 - 2 puff INHALATION Q6HR PRN #1 each 12/19/23 [Rx] Famotidine [Pepcid] 20 mg PO BID #30 tablet 12/19/23 [Rx] INSULIN LISPRO (humaLOG) [humaLOG] 1 injection SQ DIRECTED #10 ml 12/19/23 [Rx] Mometasone/Formoterol [Dulera 100 Mcg-5 Mcg Inhaler] 1 puff INHALATION BID #13 gm 12/19/23 [Rx] methylPREDNISolone Dose Pack [Medrol Dose Pack] 4 mg PO DIRECTED #21 tab 12/19/23 [Rx] Follow up Appointment(s)/Referral(s): Juan Alberto Robertson DO [Primary Care Provider] - 3 Days Discharge Disposition: HOME SELF-CARE
[2023-12-21] MEDS ORDERED: ERGOCALCIFEROL 1,250 MCG (50,000 IU) CAPSULE PO SCH (09:00)
== END 2023-12-19 13:43 | disposition home or self-care (01) ==
LOC: EC 14:19 → 6NMEDSUR 17:22 → 4SSUR 19:17
PROVIDERS: ADMIT Hospitalist; ATTEND Hospitalist
DX: J45.901 Unspecified asthma with (acute) exacerbation (principal); E11.65 Type 2 diabetes mellitus with hyperglycemia; I10 Essential (primary) hypertension; D72.829 Elevated white blood cell count, unspecified; E66.9 Obesity, unspecified; Z68.41 Body mass index [BMI] 40.0-44.9, adult; Z79.52 Long term (current) use of systemic steroids; Z79.84 Long term (current) use of oral hypoglycemic drugs; Z79.85 Long-term (current) use of injectable non-insulin antidiabetic drugs; Z79.899 Other long term (current) drug therapy
CPT/HCPCS: 96376 ×2; 96374; 99285; 36415; 94640 ×2; 93005; 85379; 83880; 80053; 83605; 83735; 84484; 85025; 85610; 85730; 87636; 71046; G0378 ×3; J2919 ×2

== ENCOUNTER 2024-10-23 11:27 | Emergency (ER) | payer BC, OTHER ==
[2024-10-23] MEDS: KETOROLAC 15 MG/ML 1 ML VIAL IM STA (12:14)
--- NOTE | 2024-10-23 12:16 | ED ---
General Adult HPI - General Chief complaint: Extremity Problem,Nontraumatic Stated complaint: IHS - left leg pain Time Seen by Provider: 10/23/24 11:49 Source: patient, RN notes reviewed, old records reviewed Mode of arrival: ambulatory Limitations: no limitations - History of Present Illness Initial comments: 43-year-old male presenting for evaluation of left hip pain. Patient states that he had a injury while getting out of his truck yesterday. He had some increased pain and tightness in the left lateral thigh region worse with movement, worse with lifting. Patient is able to ambulate. He denies any back pain. Denies any other injury. - Related Data Home Medications Medication Instructions Recorded Confirmed Acarbose [Precose] 50 mg PO BID 12/18/23 12/18/23 Albuterol Inhaler [Ventolin Hfa 1 - 2 puff INHALATION RT-Q6H PRN 12/18/23 12/18/23 Inhaler] Atorvastatin [Lipitor] 10 mg PO DAILY 12/18/23 12/18/23 Azithromycin [Zithromax Z Pack] See Taper PO DAILY 12/18/23 12/18/23 Dapagliflozin Propanediol [Farxiga] 10 mg PO HS 12/18/23 12/18/23 Dulaglutide [Trulicity] 4.5 mg SQ TU 12/18/23 12/18/23 Ergocalciferol [Vitamin D2 (1250 1,250 mcg PO DIRECTED 12/18/23 12/18/23 Mcg = 71454 Iu)] Glimepiride [Amaryl] 4 mg PO DAILY 12/18/23 12/18/23 Losartan Potassium 100 mg PO DAILY 12/18/23 12/18/23 Montelukast [Singulair] 10 mg PO HS PRN 12/18/23 12/18/23 Sildenafil [Revatio] 20 mg PO TID PRN 12/18/23 12/18/23 Triamterene-Hctz 37.5-25Mg 1 tab PO DAILY 12/18/23 12/18/23 [Maxzide 37.5-25] sitaGLIPtin [Januvia] 100 mg PO DAILY 12/18/23 12/18/23 Previous Rx's Medication Instructions Recorded EPINEPHrine [Epipen 2-Ab] 0.3 mg IM ONCE PRN #1 pack 05/22/17 Albuterol Inhaler [Ventolin Hfa 1 - 2 puff INHALATION Q6HR PRN #1 12/19/23 Inhaler] each Famotidine [Pepcid] 20 mg PO BID #30 tablet 12/19/23 INSULIN LISPRO (humaLOG) [humaLOG] 1 injection SQ DIRECTED #10 ml 12/19/23 Mometasone/Formoterol [Dulera 100 1 puff INHALATION BID #13 gm 12/19/23 Mcg-5 Mcg Inhaler] methylPREDNISolone Dose Pack 4 mg PO DIRECTED #21 tab 12/19/23 [Medrol Dose Pack] Allergies Allergy/AdvReac Type Severity Reaction Status Date / Time bee venom protein (honey bee) Allergy Rash/Hives Verified 10/23/24 11:33 metoprolol [From Lopressor] Allergy Rash/Hives Verified 10/23/24 11:33 & edema lisinopril AdvReac Cough Verified 10/23/24 11:33 metformin AdvReac Nausea & Verified 10/23/24 11:33 Vomiting & Diarrhea Review of Systems ROS Statement: Those systems with pertinent positive or pertinent negative responses have been documented in the HPI. ROS Other: All systems not noted in ROS Statement are negative. Past Medical History Past Medical History: Diabetes Mellitus, Hypertension History of Any Multi-Drug Resistant Organisms: None Reported Past Surgical History: Orthopedic Surgery Additional Past Surgical History / Comment(s): L ankle cyst removal, tube placed in ears, Past Anesthesia/Blood Transfusion Reactions: No Reported Reaction Past Psychological History: No Psychological Hx Reported Smoking Status: Never smoker Past Alcohol Use History: None Reported Past Drug Use History: None Reported General Exam Limitations: no limitations General appearance: alert, in no apparent distress Head exam: Present: atraumatic, normocephalic Eye exam: Present: normal appearance, PERRL ENT exam: Present: normal exam Neck exam: Present: normal inspection. Absent: tenderness, meningismus Respiratory exam: Present: normal lung sounds bilaterally. Absent: respiratory distress, wheezes Cardiovascular Exam: Present: regular rate, normal rhythm GI/Abdominal exam: Present: soft. Absent: distended, tenderness, guarding Extremities exam: Present: full ROM, tenderness Neurological exam: Present: alert, oriented X3, CN II-XII intact. Absent: motor sensory deficit Psychiatric exam: Present: normal affect, normal mood Skin exam: Present: warm, dry, intact. Absent: cyanosis, diaphoretic Course Vital Signs 10/23/24 11:31 Temperature 97.5 F L Pulse Rate 91 Respiratory 20 Rate Blood Pressure 180/112 O2 Sat by Pulse 97 Oximetry Medical Decision Making - Medical Decision Making Was pt. sent in by a medical professional or institution (ROSEY Robison, DEFENSE TRAVEL ADMINISTRATOR, urgent care, hospital, or fdc...) When possible be specific @ -No Did you speak to anyone other than the patient for history (EMS, parent, family, police, friend...)? What history was obtained from this source @ -No Did you review nursing and triage notes (agree or disagree)? Why? @ -I reviewed and agree with nursing and triage notes Were old charts reviewed (outside hosp., previous admission, EMS record, old EKG, old radiological studies, urgent care reports/EKG's, fdc records)? Report findings @ -No old charts were reviewed Differential Musculoskeletal Muscular strain, contusion, ligament sprain, fracture, arthritis, septic arthritis, bursitis, cellulitis, muscle spasm, nerve compression, DVT, arterial occlusion, herpes zoster, electrolyte abnormality, tumor.... This is not meant to be in all inclusive list EKG interpreted by me (3pts min.). @ -As above X-rays interpreted by me (1pt min.). @X-ray of the left hip negative for displaced fracture, no dislocation CT interpreted by me (1pt min.). @ -None done U/S interpreted by me (1pt. min.). @ -None done What testing was considered but not performed or refused? (CT, X-rays, U/S, labs)? Why? @ -None What meds were considered but not given or refused? Why? @ -None Did you discuss the management of the patient with other professionals (professionals i.e. ROSEY Robison, DEFENSE TRAVEL ADMINISTRATOR, lab, RT, psych nurse, social media manager, director advertising, teacher, cavalry officer, caser up)? Give summary @ -No Was smoking cessation discussed for >3mins.? @ -No Was critical care preformed (if so, how long)? @ -No Were there social determinants of health that impacted care today? How? (Homelessness, low income, unemployed, alcoholism, drug addiction, transportation, low edu. Level, literacy, decrease access to med. care, nursing home, rehab)? @ -No Was there de-escalation of care discussed even if they declined (Discuss DNR or withdrawal of care, Hospice)? DNR status @ -No What co-morbidities impacted this encounter? (DM, HTN, Smoking, COPD, CAD, Cancer, CVA, ARF, Chemo, Hep., AIDS, mental health diagnosis, sleep apnea, morbid obesity)? @ -None Was patient admitted / discharged? Hospital course, mention meds given and route, prescriptions, significant lab abnormalities, going to OR and other pertinent info. @ -[43-year-old male with pain to the left lateral thigh. This is movement related, likely muscle strain, x-rays are negative. Patient will rest and take Tylenol Motrin. Undiagnosed new problem with uncertain prognosis? @ -No Drug Therapy requiring intensive monitoring for toxicity (Heparin, Nitro, Insulin, Cardizem)? @ -No Were any procedures done? @ -No Diagnosis/symptom? @ -Muscle strain Acute, or Chronic, or Acute on Chronic? @ -Acute Uncomplicated (without systemic symptoms) or Complicated (systemic symptoms)? @ -Default Side effects of treatment? @ -No Exacerbation, Progression, or Severe Exacerbation? @ -No Poses a threat to life or bodily function? How? (Chest pain, [place], [place], pneumonia, PE, COPD, DKA, ARF, appy, cholecystitis, CVA, Diverticulitis, Homicidal, Suicidal, threat to staff... and all critical care pts) @ -No Disposition Clinical Impression: Muscle strain Disposition: HOME SELF-CARE Condition: Fair Instructions (If sedation given, give patient instructions): Muscle Strain (ED) Is patient prescribed a controlled substance at d/c from ED?: No Referrals: Juan Alberto Robertson DO [Primary Care Provider] - 1-2 days Time of Disposition: 12:15
--- NOTE | 2024-10-23 12:35 | XR ---
EXAMINATION TYPE: XR Hip Complete LT DATE OF EXAM: 10/23/2024 12:24 PM INDICATION: Patient age:Male; 43 years old; Reason for study: pain; PHH. pain COMPARISON: None. TECHNIQUE: The left hip was examined in the frontal and lateral projections. FINDINGS: No evidence of any acute osseous pathology, joint dislocation, or soft tissue swelling. No significant joint space narrowing. IMPRESSION: No acute osseous pathology. [facility], , 10/23/2024 12:33 PM
[2024-10-23 13:14] VITALS: BP 160/86; PULSE 80; RESP 18; TEMP 97.9
== END 2024-10-23 13:14 | disposition home or self-care (01) ==
LOC: EC 11:27
DX: S76.912A Strain of unspecified muscles, fascia and tendons at thigh level, left thigh, initial encounter (principal); X58.XXXA Exposure to other specified factors, initial encounter
CPT/HCPCS: 73502; 99283; 96372; J1885